=== PATIENT | female | born 1955 ===

== ENCOUNTER → 2018-08-07 | Outpatient (CLI) | payer MEDICARE, BC ==
[~2018-08-07] MED LIST: MULT1CAP41 PO; SIMV-42 PO
--- NOTE | 2018-08-07 14:46 | RADIOLOGY IMAGING REPORT ---
FACILITY: [facility] - [place], [place] PATIENT NAME: Maria Elena Vernon : 1955 MR: [id number] V: [id number] EXAM DATE: ORDERING PHYSICIAN: CHRISTIANO NICOLAS TECHNOLOGIST: Location: [facility] Patient: Maria Elena Vernon : 1955 Visit/Account:[id number] Date of Sevice: 08/07/2018 INDICATION: . Evaluate fracture. DATE: 08/07/2018 2:26 PM. TECHNIQUE: CT WRIST/HAND W/O LT. Noncontrast axial CT imaging was performed through the left wrist wi th sagittal and coronal reformats. One of the following dose optimization techniques was utilized in the performance of this exam: Automated exposure control; adjustment of the mA and/or kV according to the patient's size; or use of an iterative reconstruction technique. Specific details can be refer enced in the facility's radiology CT exam operational policy. COMPARISON: None available. FINDINGS: A fracture of the distal radius is comminuted, mildly impacted, mildly displaced, and exten ds intra-articularly on the medial/ulnar side. The radial articular surface remains in near neutral a lignment. There is also a tiny fracture of the ulnar styloid. Bone density is diffusely decreased at the carpus, but carpal alignment is normal, and a fracture is not identified. IMPRESSION: Comminuted, mildly impacted, intra-articular fracture of the distal radius. Slightly displaced ulnar styloid fracture. Report Dictated By: Geovanna Lancaster MD at 08/07/2018 2:26 PM Report E-Signed By: Geovanna Lancaster MD at 08/07/2018 2:40 PM WSN:[id number]
== END ==
LOC: CT 13:40
PROVIDERS: ATTEND Orthopaedic Surgery Hand Surgery
DX: S52.572A Other intraarticular fracture of lower end of left radius, initial encounter for closed fracture (principal)